=== PATIENT | male | born 1970 | race Caucasian/White ===

== ENCOUNTER 2019-08-27 18:22 | Emergency (ER) | payer BC, OTHER ==
[~2019-08-27] VITALS: Ht 172.7 cm; Wt 53.6 kg
[2019-08-27 18:27] VITALS: BP 141/92
--- NOTE | 2019-08-27 19:21 | NUR ---
PT MOVED TO PER XRAY REQUEST. PT PLACED IN HOSPTIAL GOWN. NO NEEDS AT THIS TIME. 3P'S ADDRESSED.
== END 2019-08-27 20:05 | disposition home or self-care (01) ==
LOC: ED 19:09
DX: U07.1 COVID-19 (principal); J06.9 Acute upper respiratory infection, unspecified; I10 Essential (primary) hypertension
CPT/HCPCS: 71045; 99284